=== PATIENT | female | born 1935 | race Caucasian/White ===

== ENCOUNTER 2018-06-14 06:42 | Inpatient (IN) ==
[2018-06-14] MEDS ORDERED: ACETAMINOPHEN 1,000 MG/100 ML VIAL IV PRN (10:33)
[2018-06-14] MEDS ORDERED: ONDANSETRON INJ 2 MG/ML 2 ML VIAL IV PRN (10:33)
[2018-06-14] MEDS ORDERED: HydrALAZINE HCL 20 MG/ML VIAL IV PRN (10:37)
[2018-06-14] MEDS: SODIUM CHLORIDE 0.9% 1000ML 1,000 ML IV SCH ×2 (10:55→21:38)
--- NOTE | 2018-06-14 11:09 | History & Physical Report ---
Date of Service June 14, 2018 Assessment & Plan (1) Pancreatitis: Patient kept n.p.o. hydration with normal saline pain control parenteral opiates and parenteral Tylenol, MRCP suggest acute cholecystitis with possible IPMN's in the pancreas itself no choledocholithiasis is seen antibiotics will be begun both Cipro and Flagyl and a general surgical consult be undertaken (2) HTN (hypertension): Patient be continued on her metoprolol with a small sip of water with a dose 5/1 (3) Anemia: Her anemia certainly could be acute blood loss anemia associate with her previous surgery however we will check iron and vitamin indices in the morning as well as trend her anemia throughout her stay (4) Epigastric pain: Patient has mild epigastric pain to be placed on intravenous Pepcid therapy (5) DVT prophylaxis: DVT prevention will be SCDs in case she needs an interventional procedure History of Present Illness Primary Care Provider: Janine Tirado MD 83-year-old female transferred from [facility] where she presented with nausea vomiting and abdominal pain. Upon evaluation at their facility she is found to have pancreatitis with a lipase of over 15,000, elevation of liver transaminases, alkaline phosphatase, and mild elevation of bilirubin. She is not septic as a lactic acid was 1.2 her general the labs included some anemia otherwise were unremarkable. Patient was transferred to our facility for gastrointestinal specialty expertise Patient was comfortable in the room only having minor abdominal pain worsened with examination Allergies Allergy/AdvReac Type Severity Reaction Status Date / Time No Known Allergies Allergy Unverified 06/14/18 11:13 Home Medications Home Medications Medication Instructions Recorded Confirmed Type Calcium 600 600 mg PO BID 06/14/18 06/14/18 History acetaminophen 500 mg PO BID PRN 06/14/18 06/14/18 History aspirin [Aspirin Low Dose] 81 mg PO DAILY 06/14/18 06/14/18 History metoprolol tartrate 25 mg PO DAILY 06/14/18 06/14/18 History multivitamin 1 tab PO DAILY 06/14/18 06/14/18 History ranitidine HCl [Zantac] 150 mg PO DAILY PRN 06/14/18 06/14/18 History simvastatin 40 mg PO HS 06/14/18 06/14/18 History Past Med/Surg History Medical History Dyslipidemia HTN (hypertension) Pancreatitis Surgical History H/O hysterectomy with oophorectomy per pt was benign Social History Preferred Language: Mongolian Communication Ability: Effective 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 No double vision blurry vision No problems with speech or swallowing No palpitations, chest pain or pressure No Wheezing or breathing issues Central and left upper quadrant abdominal pain with associated nausea vomiting , she has healing lower abdominal wound No burning urine urine frequency or changes in color No focal joint pain or muscle pain No skin rashes or oral lesions No unusual bruising or bleeding No focused back pain or numbness or loss of strength No changes in memory or confusion Physical Exam Physical Exam: The patient appeared well nourished and normally developed. Vital signs as documented. Head exam is unremarkable. normocephalic, atraumatic Neck is without jugular venous distension, thyromegaly, or lymphademopathy Lungs are clear to auscultation and percussion. Cardiac exam reveals Rhythm is regular. First and second heart sounds normal. Abdominal exam reveals well-healed midline abdominal incision inferior to umbilicus, bruising on her abdomen from home Lovenox injections, hypoactive ruiz wel sounds, mild tenderness in the epigastrium left upper quadrant no rebound or guarding Extremities are nonedematous and both pedal pulses are present Neurologic exam is A&Ox3, no focal deficits, strength is equal bilateral Psychologically seems neither anxious or depressed Skin is warm Dry without jaundice Results & Data Vital Signs (Past 12 Hours) Vital Signs Temp Pulse Resp BP Pulse Ox 06/14/18 10:12 36.8 C 69 16 150/75 H 96
[2018-06-14] MEDS ORDERED: Nursing to Pharmacy Communication ONE (12:40)
[2018-06-14 12:42] LABS: INR 1.1 (0.9-1.1); Prothrombin Time 10.9 Seconds (9.0-12.0)
[2018-06-14] MEDS: FAMOTIDINE 20 MG in SYRINGE 3 ML IV SCH ×2 (12:52→20:44)
[2018-06-14] MEDS: PATIENT'S ALLERGY INFO NEEDS ENTERED SCH ×4 (12:57→13:55)
--- NOTE | 2018-06-14 14:15 | Magnetic Resonance Report ---
MRCP CLINICAL HISTORY: Elevated lipase. COMPARISON STUDY: No priors. TECHNIQUE: Abdominal MRCP is performed utilizing various T2-weighted sequences in the axial and coron al planes. IV contrast was not administered for this examination. 3-D reformats are created and asses sed. The examination is modestly compromised by motion artifact. FINDINGS: There are numerous gallstones. The gallbladder is distended. The gallbladder wall is thickened and th ere is pericholecystic edema and trace fluid. The appearance is consistent with acute cholecystitis. There is mild central intrahepatic biliary ductal dilatation. The common bile duct measures up to 5 m m. There are no filling defects to indicate choledocholithiasis. The pancreatic duct is normal in juan iber. The liver, spleen, and adrenal glands are grossly unremarkable. The pancreas is atrophic. There are a t least 5 tiny cystic lesions measuring up to 6 mm located adjacent to the pancreatic duct. These are typical appearance for small sidebranch IPMNs. The kidneys are atrophic and without hydronephrosis. Numerous parapelvic cysts are seen bilaterally. There is no bowel obstruction. The abdominal aorta is normal in caliber. The bony structures are normal as imaged. No pleural effusion is seen. Midline st ernotomy wires are noted. IMPRESSION: 1. Cholelithiasis with evidence of acute cholecystitis. 2. No choledocholithiasis is seen. 3. 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 Electronically signed by: Ryan Turner M.D. 06/14/2018 2:13 PM
--- NOTE | 2018-06-14 14:38 | Ultrasound Report ---
US liver CLINICAL HISTORY: eval for cbd distension/Stone pain. Nausea. COMPARISON STUDY: MRCP same date FINDINGS: Multiple small gallstones are noted within the gallbladder lumen. Trace amount of perichole cystic edema. Common bile that measures 5 mm. No significant intrahepatic biliary ductal dilatation b y ultrasound criteria. IMPRESSION: 1. Findings suggesting acute cholecystitis. 2. Normal caliber common bile duct at 5 mm. 3. Liver itself is uniform. The above report was generated using voice recognition software. It may contain grammatical, syntax or spelling errors. Electronically signed by: Clovis Rainye M.D. 06/14/2018 2:37 PM
[2018-06-14] MEDS: METOPROLOL SUCC 25MG EXT REL TAB PO SCH (14:47)
--- NOTE | 2018-06-14 19:51 | Surgery Consultation ---
Date of Consultation June 14, 2018 Assessment & Plan (1) Gallstone pancreatitis: Patient is admitted with what appears to be gallstone pancreatitis. She has significantly elevated lipase. We will monitor her liver function study and her lipase. We will also ask the GI doctor follow the patient With her history of cryptitis and elevated liver functions. It may be that we received with laparoscopic Cholecystectomy possible cholangiogram the next 1 to 2 days. We will wait for her pace to normalize. I have discussed this plan with the patient and her . History of Present Illness Attending Physician: Isaias Keenan History of Present Illness Patient is admitted to the hospital via transfer from [facility] with diagnosis of gallstone pancreatitis. Her liver function studies and lipase are significantly elevated. She did undergo MRCP which does not show any defects in the common bile duct. She does have evidence of sludge and stones in her gallbladder with gallbladder wall edema. Currently she has no significant abdominal pain nausea or vomiting. She is much improved from last evening. Recent history includes hysterectomy and bilateral oophorectomy at [facility] in [place]. She apparently had ovarian masses. Allergies Allergy/AdvReac Type Severity Reaction Status Date / Time No Known Allergies Allergy Unverified 06/14/18 11:13 Home Medications Home Medications Medication Instructions Recorded Confirmed Type Calcium 600 600 mg PO BID 06/14/18 06/14/18 History acetaminophen 500 mg PO BID PRN 06/14/18 06/14/18 History aspirin [Aspirin Low Dose] 81 mg PO DAILY 06/14/18 06/14/18 History metoprolol tartrate 25 mg PO DAILY 06/14/18 06/14/18 History multivitamin 1 tab PO DAILY 06/14/18 06/14/18 History ranitidine HCl [Zantac] 150 mg PO DAILY PRN 06/14/18 06/14/18 History simvastatin 40 mg PO HS 06/14/18 06/14/18 History Patient History Medical History Dyslipidemia HTN (hypertension) Pancreatitis Surgical History H/O hysterectomy with oophorectomy per pt was benign Social History Preferred Language: Finnish Communication Ability: Effective 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 Head is atraumatic sclera do not appear to be icteric and is warm without rashes neck is supple she is in no respiratory distress Her heart shows regular rhythm. Her abdomen is soft and essentially nontender. Her extremities are warm and well-perfused Results & Data Vital Signs (Past 12 Hours) Vital Signs Temp Pulse Resp BP Pulse Ox 06/14/18 15:31 36.3 C L 82 17 132/72 95 06/14/18 10:12 36.8 C 69 16 150/75 H 96 I did review her laboratories CP results. Her CT scan images are not available at this time
[2018-06-14 20:01] LABS: Creatinine Clr Calc Pharmacy 43.2 ml/min; Est GFR (African American) 68.5; Est GFR (Non-African American) 59.1
[2018-06-14] MEDS: metroNIDAZOLE 500 MG/100 ML BAG IV SCH (20:34)
[2018-06-14] MEDS: HEPARIN SOD 5,000 UNIT/0.5 ML VIAL SQ SCH (20:44)
[2018-06-14] MEDS: CIPROFLOXACIN 400 MG/200 ML BAG IV SCH (21:39)
[2018-06-15] MEDS: metroNIDAZOLE 500 MG/100 ML BAG IV SCH ×3 (04:56→23:50)
[2018-06-15] MEDS: CIPROFLOXACIN 400 MG/200 ML BAG IV SCH ×2 (07:39→20:16)
[2018-06-15] MEDS: SODIUM CHLORIDE 0.9% 1000ML 1,000 ML IV SCH (07:39)
[2018-06-15 08:35] LABS: Albumin Level 2.7 gm/dl (3.4-5.0); BUN Creatinine Ratio 17.9 (10-20); Calcium 8.1 mg/dl (8.5-10.1); Creatinine Clr Calc Pharmacy 52.7 ml/min; Est GFR (Non-African American) 75.1; Potassium 3.6 mmol/L (3.5-5.1)
[2018-06-15 08:38] LABS: Bilirubin Direct 0.4 mg/dl (0-0.2); Bilirubin,Total 0.7 mg/dl (0.2-1); Total Protein 5.8 gm/dl (6.4-8.2)
[2018-06-15] MEDS: METOPROLOL SUCC 25MG EXT REL TAB PO SCH (09:08)
[2018-06-15] MEDS: FAMOTIDINE 20 MG in SYRINGE 3 ML IV SCH ×2 (09:08→20:21)
[2018-06-15] MEDS: HEPARIN SOD 5,000 UNIT/0.5 ML VIAL SQ SCH ×2 (09:08→20:20)
--- NOTE | 2018-06-15 10:00 | Gastrointestinal Consultation ---
Date of Consultation June 15, 2018 Assessment & Plan (1) Gallstone pancreatitis: 83 year old female with gallstone pancreatitis, who presented w/ elevated LFT and significantly elevated lipase. MRCP negative, this AM pain improving, LFTs and lipase trending down, likely passed a stone - Daily LFTs - NPO - LR 200 mL hr - Antiemetics PRN - Analgesia PRN - Would keep NPO after midnight until we are able to re-evaluate LFTs - No current indication for ERCP - Appreciate general surgery recommendations Thank you for allowing us to participate in the care of this patient. Please call with any acute changes, questions or concerns. Please see addendum below with additional recommendation from my supervising physician. Present on Admission?: Yes Supervising Physician Co-Signing Physician Notes I have performed a history and physical examination of this patient and reviewed the electronic medical record. Specifically, on physical examination there is mild epigastric tenderness. I have discussed the case with ORA Gonzalez. The above note reflects my findings, conclusions, and recommendations. Clovis Haney MD History of Present Illness Reason for Consultation: gallstone panc Requesting Physician: Bryce Attending Physician: Eric Wu DO History of Present Illness 83 year old female who repots abrupt onset of epigastric abdominal pain w/ radiation under both breast and into her back on Tuesday associated w/ mild nausea, no vomiting. Initially pain wax and waned, however, once persisted she sought ED care. [facility] and labs concerning for gallstone panc and transfer was initated. Today, feeling somewhat improved. Abd pain is less severe. No longer constant, only pain with palpation. No nausea, vomiting. Moving bowels. No appetite. No fever, chills, CP, SOB. No new meds No ETOH No prior episodes of pancreatitis Labs received were reviewed. Presented w/ TB 2.2, AST 471, ALK 243, ALKP 282 and lipase > 15,000 MRCP: Cholelithiasis with evidence of acute cholecystitis. No choledocholithiasis is seen. Allergies Allergy/AdvReac Type Severity Reaction Status Date / Time No Known Allergies Allergy Unverified 06/14/18 11:13 Home Medications Home Medications Medication Instructions Recorded Confirmed Type Calcium 600 600 mg PO BID 06/14/18 06/14/18 History acetaminophen 500 mg PO BID PRN 06/14/18 06/14/18 History aspirin [Aspirin Low Dose] 81 mg PO DAILY 06/14/18 06/14/18 History metoprolol tartrate 25 mg PO DAILY 06/14/18 06/14/18 History multivitamin 1 tab PO DAILY 06/14/18 06/14/18 History ranitidine HCl [Zantac] 150 mg PO DAILY PRN 06/14/18 06/14/18 History simvastatin 40 mg PO HS 06/14/18 06/14/18 History Patient History Medical History Dyslipidemia HTN (hypertension) Pancreatitis Surgical History H/O hysterectomy with oophorectomy per pt was benign Social History Preferred Language: Greenlandic Communication Ability: Effective 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 Beliefs That Will Affect Care: None Current Living Situation: Spouse Other Information That Helps Us Care for You: No Feels Safe at Home: Yes Safety Concerns: Feels Safe At This Time Smoking Status: Never smoker Do You Dip or Chew Tobacco: No Second Hand Exposure: No Tobacco Cessation Education Requested by Patient: No Hx Alcohol Use: Yes Alcohol type: wine Hx Substance Use: No Review of Systems Constitutional: no fever, no body aches, no weakness and no weight gain Respiratory: no cough, no dyspnea, no pain on inspiration and no wheezing Cardiovascular: no chest pain, no radiating jaw, neck or arm pain, no dyspnea on exertion and no palpitations Gastrointestinal: + abdominal pain; no belching, no early satiety, no heartburn, no nausea, no vomiting, no coffee ground emesis and no melena Physical Exam Constitutional: WD/WN, vitals as above Respiratory: normal respiratory effort, lungs clear to auscultation Cardiovascular: RRR, no murmur, no edema Gastrointestinal (Abdomen): Inspection/Auscultation: abdomen normal to inspection and normal bowel sounds Percussion/Palpation: + abdomen tender and abdomen soft; no guarding and abdomen not rigid Skin: no rashes, warm and dry Results & Data Vital Signs (Past 12 Hours) Vital Signs Temp Pulse Resp BP Pulse Ox 06/15/18 06:56 36.9 C 82 16 132/70 93 06/14/18 22:56 36.9 C 74 16 121/66 94 Laboratory Results 06/15/18 06/15/18 06/14/18 Range/Units 07:39 07:39 12:24 PT (9.0-12.0) Seconds INR (0.9-1.1) Sodium 141 (136-145) mmol/L Potassium 3.6 (3.5-5.1) mmol/L Chloride 109 H (98-107) mmol/L Carbon Dioxide 24 (21-32) mmol/L Anion Gap 8.0 (3-11) BUN 13 (7-18) mg/dl Creatinine 0.73 0.89 (0.6-1.2) mg/dl Est Cr Clr Drug Dosing 52.7 43.2 ml/min Est GFR ( Amer) 87.0 68.5 Est GFR (Non-Af Amer) 75.1 59.1 BUN/Creatinine Ratio 17.9 (10-20) Glucose 72 (70-99) mg/dl Calcium 8.1 L (8.5-10.1) mg/dl Iron 51 (35-150) mcg/dl TIBC 289 (250-450) mcg/dl Total Bilirubin 0.7 (0.2-1) mg/dl Direct Bilirubin 0.4 H (0-0.2) mg/dl AST 150 H (15-37) U/L ALT 146 H (12-78) U/L Alkaline Phosphatase 216 H (45-117) U/L Total Protein 5.8 L (6.4-8.2) gm/dl Albumin 2.7 L (3.4-5.0) gm/dl Lipase 1156 H (73-393) U/L Vitamin B12 Pending Folate Pending 06/14/18 Range/Units 12:18 PT 10.9 (9.0-12.0) Seconds INR 1.1 (0.9-1.1) Sodium (136-145) mmol/L Potassium (3.5-5.1) mmol/L Chloride (98-107) mmol/L Carbon Dioxide (21-32) mmol/L Anion Gap (3-11) BUN (7-18) mg/dl Creatinine (0.6-1.2) mg/dl Est Cr Clr Drug Dosing ml/min Est GFR ( Amer) Est GFR (Non-Af Amer) BUN/Creatinine Ratio (10-20) Glucose (70-99) mg/dl Calcium (8.5-10.1) mg/dl Iron (35-150) mcg/dl TIBC (250-450) mcg/dl Total Bilirubin (0.2-1) mg/dl Direct Bilirubin (0-0.2) mg/dl AST (15-37) U/L ALT (12-78) U/L Alkaline Phosphatase (45-117) U/L Total Protein (6.4-8.2) gm/dl Albumin (3.4-5.0) gm/dl Lipase (73-393) U/L Vitamin B12 Folate
[2018-06-15] MEDS ORDERED: CONRAY 60% 50 ML VIAL ONE (10:31)
[2018-06-15] MEDS ORDERED: LIDOCAINE/EPINEPHRINE 1% 20 ML VIAL ONE (10:31)
--- NOTE | 2018-06-15 10:36 | Progress Note ---
Date of Service June 15, 2018 Assessment & Plan (1) Gallstone pancreatitis: Lipase has come down to 1100- pt asx discussed laparoscopic cholecystectomy with her and - they wish to proceed Subjective pt awake, alert, no pain Physical Exam Physical Exam: abd soft Results & Data Vital Signs (Past 12 Hours) Vital Signs Temp Pulse Resp BP Pulse Ox 06/15/18 06:56 36.9 C 82 16 132/70 93 06/14/18 22:56 36.9 C 74 16 121/66 94
[2018-06-15] MEDS ORDERED: ROCURONIUM BROMIDE 10 MG/ML 5 ML VIAL ONE (10:37)
[2018-06-15] MEDS ORDERED: fentaNYL citrate 100 MCG/2 ML VIAL ONE ×2 (10:37→12:58)
[2018-06-15] MEDS ORDERED: LIDOCAINE HCL 2% 2 ML VIAL/AMP(20MG/ML) INFIL ONE (10:37)
[2018-06-15] MEDS ORDERED: PROPOFOL IV EMULSION 10 MG/ML 20 ML VIAL IV ONE (10:37)
[2018-06-15] MEDS ORDERED: ONDANSETRON INJ 2 MG/ML 2 ML VIAL ONE (10:37)
[2018-06-15] MEDS: LACTATED RINGER'S 1,000 ML IV SCH ×3 (10:40→21:37)
--- NOTE | 2018-06-15 10:51 | History & Physical Bridge Note ---
Date of Service June 15, 2018 History & Physical Bridge Note I have examined the patient, reviewed the History & Physical and in the interval since the performance of the History & Physical I have noted the following changes of clinical significance: no changes noted pt examined and or explained to pt will proceed with lydia pugh possible open r and c explained consent signed
--- NOTE | 2018-06-15 11:09 | Anesthesiology Consultation ---
Date of Service June 15, 2018 Assessment & Plan Chart Review Chart Review: Acceptable Risk for Surgery and Patient NOT seen in Pre Admission Testing Consults Requested none ASA ASA3 Proposed Anesthesia Anesthesia Type: General Risk / Benefits Reviewed With: PT / POA / Parent / Guardian, Accepts Plan and Informed Consent Obtained History Surgery Operation Date: 06/15/18 10:35 Proposed Procedures p Laparoscopic Cholecystectomy with Cholangiogram - Javi Yung MD Height/Weight Height: 5 ft 3 in Weight: 69.6 kg Allergies Allergy/AdvReac Type Severity Reaction Status Date / Time No Known Allergies Allergy Unverified 06/14/18 11:13 Medications Home Medications Medication Instructions Recorded Confirmed Last Taken Calcium 600 600 mg PO BID 06/14/18 06/14/18 Unknown acetaminophen 500 mg PO BID PRN 06/14/18 06/14/18 Unknown aspirin [Aspirin Low Dose] 81 mg PO DAILY 06/14/18 06/14/18 Unknown metoprolol tartrate 25 mg PO DAILY 06/14/18 06/14/18 Unknown multivitamin 1 tab PO DAILY 06/14/18 06/14/18 Unknown ranitidine HCl [Zantac] 150 mg PO DAILY PRN 06/14/18 06/14/18 Unknown simvastatin 40 mg PO HS 06/14/18 06/14/18 Unknown Active Medications Generic Name Dose Route Start Last Admin Trade Name Freq PRN Reason Stop Dose Admin Heparin Sodium (Porcine) 5,000 units 06/14/18 21:00 06/15/18 09:08 Heparin Sodium (Porcine) SQ 07/14/18 20:59 5,000 units Q12 SARATH Administration Acetaminophen 1,000 mg in 100 mls @ 400 mls/hr 06/14/18 10:33 06/14/18 19:46 Ofirmev IV 07/14/18 10:32 Infused Q8H PRN Infusion Pain or Fever Famotidine 20 mg/ Syringe 5 mls @ 2.5 mls/min 06/14/18 12:15 06/15/18 09:08 IV 07/14/18 08:59 2.5 mls/min BID SARATH Administration Ciprofloxacin 400 mg in 200 mls @ 100 mls/hr 06/14/18 20:00 06/15/18 10:40 Cipro IV 06/24/18 19:59 Infused Q12H SARATH Infusion Metronidazole 500 mg in 100 mls @ 100 mls/hr 06/14/18 20:00 06/15/18 06:07 Flagyl IV 06/24/18 19:59 Infused Q8H SARATH Infusion Lactated Ringer's 1,000 mls @ 175 mls/hr 06/15/18 10:15 06/15/18 10:40 Lr IV 07/15/18 10:14 Not Given .[id number] SARATH Metoprolol Succinate 25 mg 06/14/18 12:15 06/15/18 09:08 Toprol Xl PO 07/14/18 12:14 25 mg QAM SARATH Administration NPO Date Last Intake of Fluids: 06/15/18 Time Last Intake of Fluids: 08:00 Last Intake of Fluids Comment: sip with medications Date Last Intake of Solids: 06/12/18 Time Last Intake of Solids: 18:00 Past Medical History Medical History Dyslipidemia HTN (hypertension) Pancreatitis Exercise / Class Metabolic Activity II 4-5 Yardwork/Stairs/Walk up hill Past Surgical History Surgical History H/O hysterectomy with oophorectomy per pt was benign Past Anesthesia History No Hx of Anesthesia Complications and No Family Hx of Anesthesia Complications History of PONV No Hx of PONV and No Hx of Motion Sickness Social History Smoking Status: Never smoker Do You Dip or Chew Tobacco: No Hx Alcohol Use: Yes Alcohol type: wine alcohol intake frequency: other Alcohol Intake Frequency Comment: 2 times a month Hx Substance Use: No Physical Exam Vital Signs Last Vital Signs Temp 37.2 C 06/15/18 10:49 Pulse 85 06/15/18 10:49 Resp 18 06/15/18 10:49 BP 151/73 H 06/15/18 10:49 Pulse Ox 96 06/15/18 10:49 Constitutional not obese ENMT Mouth: no dentition abnormality Thyromental Distance: > or= 3.5 Finger Breadths Mallampati Class: II Neck normal visual inspection and trachea midline; neck extension not limited Respiratory normal respiratory effort Auscultation: lungs clear to auscultation bilaterally Cardiovascular Rate/Rhythm: regular rate and regular rhythm Heart Sounds: no murmur Vessels: no carotid bruit Musculoskeletal Spine: normal cervical ROM Neurologic moves all extremities Motor/Sensory: no sensory deficit Psychiatric Orientation: alert and oriented x 3 Testing Electrocardiogram Date: 06/15/18 Findings: + NSR @ (at 88) Laboratory Results 06/15/18 07:39 PT 10.9 Seconds (9.0-12.0) 06/14/18 12:18 INR 1.1 (0.9-1.1) 06/14/18 12:18
[2018-06-15] MEDS ORDERED: NEOSTIGMINE METHYLSULFATE 5 MG/5 ML SYR ONE (11:59)
[2018-06-15] MEDS ORDERED: GLYCOPYRROLATE 0.2 MG/ML VIAL ONE (11:59)
[2018-06-15] MEDS ORDERED: cefOXitin 1,000 MG/50 ML BAG IV STA (12:09)
--- NOTE | 2018-06-15 12:30 | Post Operative Brief Note ---
Immediate Post Op Note v1 Date of Surgery June 15, 2018 Pre & Post Diagnosis Operation Date: 06/15/18 10:35 Pre-Op Diagnosis: PANCREATITIS Post-Op Diagnosis: PANCREATITIS Procedure Operation Date: 06/15/18 10:35 Actual Procedures p Laparoscopic Cholecystectomy with Cholangiogram(Not Applicable) - Javi Yung MD Surgeon Javi Yung MD Supervisor Home Energy Consultant 0 Estimated Blood Loss 20 Findings Consistent with Post-Op Diagnosis Drains Carlos Drain
--- NOTE | 2018-06-15 12:39 | Fluoroscopy Report ---
INTRAOPERATIVE CHOLANGIOGRAM HISTORY: Post cholecystectomy. FLUOROSCOPY TIME: 2 seconds. 3 fluoroscopic spot images of the right upper quadrant. FINDINGS: Fluoroscopy was provided for an intraoperative cholangiogram status post cholecystectomy. C ontrast was injected through the cystic duct remnant. The common bile duct is normal in course and ca liber. There are no filling defects seen within the common bile duct to suggest a retained stone. Co ntrast extends into the small bowel. There is no intrahepatic bile duct dilatation. IMPRESSION: Fluoroscopy provided for an intraoperative cholangiogram status post cholecystectomy. No filling defects within the common bile duct. Electronically signed by: Jarrell Lind M.D. 06/15/2018 12:37 PM
[2018-06-15] MEDS ORDERED: PROMETHAZINE HCL 12.5 MG in SODIUM CHLORIDE 0.9% 50 ML IV PRN (12:50)
[2018-06-15] MEDS ORDERED: FLUMAZENIL 0.1 MG/1 ML 10 ML VIAL IV PRN (12:50)
[2018-06-15] MEDS ORDERED: ONDANSETRON INJ 2 MG/ML 2 ML VIAL IV PRN (12:50)
[2018-06-15] MEDS ORDERED: LABETALOL HCL IV 5 MG/ML 20ML IV PRN (12:50)
[2018-06-15] MEDS ORDERED: NALOXONE HCL 0.4 MG/1 ML VIAL/CARP IV PRN (12:50)
[2018-06-15] MEDS ORDERED: ATROPINE SULFATE 0.1 MG/ML 10ML SYR IV PRN (12:50)
[2018-06-15] MEDS ORDERED: ePHEDrine sulfate 50 MG/ML AMP IV PRN (12:50)
[2018-06-15] MEDS: fentaNYL citrate 100 MCG/2 ML VIAL IV PRN ×4 (13:05→13:35)
--- NOTE | 2018-06-15 13:10 | Operative Report ---
Post Operative Report Pre & Post Diagnosis Operation Date: 06/15/18 10:35 Pre-Op Diagnosis: PANCREATITIS Post-Op Diagnosis: PANCREATITIS Procedure Operation Date: 06/15/18 10:35 Actual Procedures p Laparoscopic Cholecystectomy with Cholangiogram(Not Applicable) - Javi Yung MD Surgeon Javi Yung MD Patient was brought into the operating theater supine position general endotracheal anesthesia supplemental IV antibiotics given patient was identified a timeout was had the abdomen was prepped the right scrub and solution properly draped small incision was made supraumbilically varices onto the abdomen CO2 insufflated point of entry inspected under the left fine 5 mm trocar then inserted followed by the camera point of entry again reevaluated free of any injury 5 mm epigastric and 2 subcostal ports with preemptive local analgesic was positioned under direct visualization gallbladder wall was quite thickened retracted cephalad and we started dissecting in the edematous tissue easily dissecting out the cystic duct window was created cystic duct was clipped proximally #5 urethral catheter transverse and the abdominal wall and a 14 Angiocath positions serial x-rays taken free flow into the duodenum no obstruction visualized Cholangiocath was removed cystic duct was securely twice 5 mm clips artery was identified clipped proximally twice once distally right at the edge of the gallbladder usually sharp electrocautery gallbladder was quite edematous as stated the plane of dissection was somewhat easy to identify gallbladder was fairly friable small opening the gallbladder was made some stones fell out which were bilirubinate small caviar type of stones once the gallbladder was freed from the liver placed on Endopouch and taken out intact through the epigastric port subhepatic suprahepatic area was then checked hemostasis appeared satisfactory I elected to drain the subhepatic space with a 19 Carlos drain that was brought in the epigastric area and taken out through the lateral port in the right upper quadrant prior to doing that we placed the camera right upper quadrant port visualize the anterior abdominal wall where the trocar was born and no adhesions were identified individual trochars were then removed under direct visualization last the umbilical trocar wounds were closed with 4-0 Monocryl Steri-Strips applied the Carlos drain was sutured to skin edge with 2-0 silk suture procedure was tolerated well by the patient estimated blood loss approximately 10 cc 20 cc thank you Turning Lathe Tender 0 Estimated Blood Loss 20 Findings Consistent with Post-Op Diagnosis Specimens gallbladder and stones Description of Procedure merda I attest to the content of the Intraoperative Record and any orders documented therein. Any exceptions are noted below.
--- NOTE | 2018-06-15 13:57 | Anesthesiology Progress Note ---
Date of Service June 15, 2018 Anesthesia Post Procedure Vital Signs Vital Signs: Temp Pulse Pulse Resp BP BP Pulse Ox 06/15/18 13:50 37.2 C 75 15 147/66 H 100 06/15/18 13:40 37.2 C 83 17 139/62 100 06/15/18 13:30 76 16 147/71 H 100 06/15/18 13:20 78 18 153/64 H 100 06/15/18 13:10 79 18 153/71 H 100 06/15/18 13:00 74 18 145/69 H 100 06/15/18 12:50 79 19 159/66 H 100 06/15/18 12:41 38.2 C H 78 23 162/70 H 100 06/15/18 10:49 37.2 C 85 18 151/73 H 96 06/15/18 06:56 36.9 C 82 16 132/70 93 06/14/18 22:56 36.9 C 74 16 121/66 94 06/14/18 15:31 36.3 C L 82 17 132/72 95 Pain Intensity Abdomen: Pain Intensity: 4 Transfer of Care Handoff Completed per policy Notes Mental Status: alert / awake / arousable Patient Amnestic to Procedure: Yes Nausea / Vomiting: adequately controlled Pain: adequately controlled Airway Patency, RR, SpO2: stable & adequate BP & HR: stable & adequate Hydration State: stable & adequate Anesthetic Complications: no major complications apparent
[2018-06-15] MEDS ORDERED: ACETAMINOPHEN 500 MG TAB PO PRN (14:15)
[2018-06-15 14:50] LABS: Folate (Folic Acid) > 24.00 ng/ml (>5.38); Vitamin B12 282 pg/ml (211-911)
--- NOTE | 2018-06-15 15:06 | Hospitalist Progress Note ---
Date of Service June 15, 2018 Assessment & Plan (1) Gallstone pancreatitis: - Initial Lipase > 21306 and currently at 1100; largely asymptomatic at this point - MRCP with acute cholecystitis and cholelithiasis but no evidence of choledocholithiasis - possible recently passed stone? - Pain control with Tylenol and Morphine PRN; anti-emetics - Ciprofloxacin 400 mg IV BID and Flagyl 500 mg IV Q8H; LR 175 mL/hr - Daily labs to assess lipase/LFTs - GI and Gen Surg consulted - appreciate input Present on Admission?: Yes (2) CAD (coronary atherosclerotic disease): - H/O CABG; stable cardiovascularly - denies ACS or limitations with exertion due to CP/SOB - ASA 81 mg daily, Toprol XL 25 mg daily, Simvastatin 40 mg daily Present on Admission?: Yes (3) Anemia: - Possibly related to acute blood loss anemia from recent DENNIS/BSO - Iron and vitamin indices are WNL however lower end of normal - Continue to trend daily Present on Admission?: Yes (4) DVT prophylaxis: - SCDs; Heparin BID Disposition: Await surgical recovery Subjective Pt evaluated prior to cholecystectomy. Reports that her pain is much better and beginning to feel better. Some slight discomfort in the abdomen but is manageable. Had recent DENNIS/BSO. Currently no nausea or vomiting. Lipase now to 1100. Verbalizes no other complaints at this time. Denies CP or SOB. H/O CABG but stable cardiovascularly. No limitations of activity due to CP/SOB. Optimal for surgical intervention Review of Systems Constitutional: no fever and no chills Eyes: no worsening vision Ear, Nose, Mouth, Throat: no sore throat and no dysphagia Respiratory: no cough and no dyspnea Cardiovascular: no chest pain, no palpitations and no edema Gastrointestinal: + abdominal pain; no nausea, no vomiting, no constipation and no diarrhea/loose stools Genitourinary: no dysuria Musculoskeletal: no body aches Integumentary: no rash Neurologic: no dizziness Physical Exam Constitutional: well developed and well nourished; no acute distress and not ill appearing Eyes: + anicteric sclerae ENMT: Throat: uvula midline Neck: normal visual inspection and trachea midline Respiratory: normal respiratory effort, lungs clear to auscultation Cardiovascular: RRR, no murmur, no edema Gastrointestinal (Abdomen): Inspection/Auscultation: normal bowel sounds Percussion/Palpation: abdomen soft Musculoskeletal: Head/Neck/Chest: normocephalic, head atraumatic and neck supple Skin: no rashes, warm and dry Neurologic: moves all extremities Psychiatric: A+Ox3, euthymic affect Results & Data Vital Signs (Past 12 Hours) Vital Signs Temp Pulse Pulse Resp BP BP Pulse Ox 06/15/18 14:45 37.0 C 80 16 146/76 H 98 06/15/18 14:10 37.4 C 87 18 161/74 H 95 06/15/18 13:50 37.2 C 75 15 147/66 H 100 06/15/18 13:40 37.2 C 83 17 139/62 100 06/15/18 13:30 76 16 147/71 H 100 06/15/18 13:20 78 18 153/64 H 100 06/15/18 13:10 79 18 153/71 H 100 06/15/18 13:00 74 18 145/69 H 100 06/15/18 12:50 79 19 159/66 H 100 06/15/18 12:41 38.2 C H 78 23 162/70 H 100 06/15/18 10:49 37.2 C 85 18 151/73 H 96 06/15/18 06:56 36.9 C 82 16 132/70 93
[2018-06-15] MEDS: MoRPHine SULFATE 2 MG/ML CARP IV PRN ×2 (16:17→21:46)
[2018-06-15] MEDS: CALCIUM CARBONATE 1250MG TAB PO SCH (20:21)
[2018-06-15] MEDS ORDERED: SIMVASTATIN 40 MG TAB PO SCH (21:00)
[2018-06-16] MEDS: LACTATED RINGER'S 1,000 ML IV SCH (03:35)
[2018-06-16] MEDS: metroNIDAZOLE 500 MG/100 ML BAG IV SCH (06:05)
--- NOTE | 2018-06-16 06:12 | Surgery Progress Note ---
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
[2018-06-16 07:05] LABS: Hematocrit (blood only) 29.1 % (37-47); Hemoglobin 9.2 g/dL (12.0-16.0); Mean Corpuscular Hgb Conc 31.6 g/dL (32-36); Mean Corpuscular Volume 79.7 fL (80-100); Mean Platelet Volume 10.4 fL (7.4-10.4); Platelet Count 217 K/uL (130-400); RDW Coefficient of Variation 14.9 % (11.5-14.5); RDW Standard Deviation 43.6 fL (36.4-46.3); Red Blood Count 3.65 M/uL (4.2-5.4); White Blood Count 7.92 K/uL (4.8-10.8)
[2018-06-16] MEDS: CIPROFLOXACIN 400 MG/200 ML BAG IV SCH (07:39)
[2018-06-16] MEDS: MoRPHine SULFATE 2 MG/ML CARP IV PRN (07:39)
[2018-06-16 07:40] LABS: Albumin Level 2.6 gm/dl (3.4-5.0); BUN Creatinine Ratio 9.6 (10-20); Bilirubin Direct 0.3 mg/dl (0-0.2); Bilirubin,Total 0.6 mg/dl (0.2-1); Calcium 8.2 mg/dl (8.5-10.1); Creatinine Clr Calc Pharmacy 46.9 ml/min; Est GFR (African American) 75.6; Est GFR (Non-African American) 65.3; Potassium 3.3 mmol/L (3.5-5.1); Total Protein 5.8 gm/dl (6.4-8.2)
[2018-06-16] MEDS: CALCIUM CARBONATE 1250MG TAB PO SCH (08:49)
[2018-06-16] MEDS: METOPROLOL SUCC 25MG EXT REL TAB PO SCH (08:50)
[2018-06-16] MEDS: HEPARIN SOD 5,000 UNIT/0.5 ML VIAL SQ SCH (08:51)
[2018-06-16] MEDS ORDERED: MULTIVITAMIN TAB PO SCH (09:00)
[2018-06-16] MEDS ORDERED: ASPIRIN 81 MG ECTAB PO SCH (09:00)
[2018-06-16] MEDS ORDERED: ACETAMINOPHEN W/CODEINE #3 1 TAB PO PRN (10:48)
[2018-06-16] MEDS ORDERED: metroNIDAZOLE 500 MG TAB PO SCH (14:00)
[2018-06-16] MEDS: FAMOTIDINE 20 MG in SYRINGE 3 ML IV SCH (14:14)
--- NOTE | 2018-06-16 15:58 | Discharge Summary ---
Date of Service June 16, 2018 Admission HPI Per Admitting Provider 83-year-old female transferred from [facility] where she presented with nausea vomiting and abdominal pain. Upon evaluation at their facility she is found to have pancreatitis with a lipase of over 15,000, elevation of liver transaminases, alkaline phosphatase, and mild elevation of bilirubin. She is not septic as a lactic acid was 1.2 her general the labs included some anemia otherwise were unremarkable. Patient was transferred to our facility for gastrointestinal specialty expertise Patient was comfortable in the room only having minor abdominal pain worsened with examination Principal Diagnosis Gallstone Pancreatitis with Acute Cholecystitis S/P Lap Valeria Discharge Exam Constitutional well developed and well nourished; no acute distress and not ill appearing Eyes + anicteric sclerae ENMT Throat: uvula midline Neck normal visual inspection and trachea midline Respiratory normal respiratory effort, lungs clear to auscultation Cardiovascular RRR, no murmur, no edema Gastrointestinal (Abdomen) Inspection/Auscultation: normal bowel sounds Percussion/Palpation: abdomen soft; abdomen nontender initial MARELY drain present now removed; incisions well-approximated without drainage or erythema Musculoskeletal Head/Neck/Chest: normocephalic, head atraumatic and neck supple Skin no rashes, warm and dry Neurologic moves all extremities Psychiatric A+Ox3, euthymic affect Discharge Data Allergies Allergy/AdvReac Type Severity Reaction Status Date / Time No Known Allergies Allergy Unverified 06/14/18 11:13 Consultations 06/14/18 10:34 Consult Case Management - Discharge Planning Routine 06/14/18 19:07 Consult General Surgery Routine 06/15/18 08:31 Consult Gastroenterology Routine Procedures Performed Operation Date: 06/15/18 10:35 Actual Procedures p Laparoscopic Cholecystectomy with Cholangiogram(Not Applicable) - Javi Yung MD Ordered Studies 06/14/18 10:37 MR MRCP Routine 06/14/18 10:56 US liver Routine 06/15/18 11:04 [place] cholangiogram OR Routine Hospital Course (1) Gallstone pancreatitis: - Initial Lipase > 81702 and now resolved; and asymptomatic from pancreatitis - tolerated diet - MRCP with acute cholecystitis and cholelithiasis but no evidence of choledocholithiasis - possible recently passed stone? - S/P Lab Valeria on 06/17 and cholangiogram without evidence of filling defects - Rx for pain control and short course Ciprofloxacin; Plan to F/U with surgeon x 1 week (Dr. Yung) (2) CAD (coronary atherosclerotic disease): - H/O CABG; stable cardiovascularly - denies ACS or limitations with exertion due to CP/SOB - ASA 81 mg daily, Toprol XL 25 mg daily, Simvastatin 40 mg daily (3) Anemia: - Possibly related to acute blood loss anemia from recent DENNIS/BSO - Iron and vitamin indices are WNL however lower end of normal (4) DVT prophylaxis: - Instructed to resume prescribed Lovenox (prescribed by Gyne after surgery) starting / Total Time Total Time Spent Total Time Spent (In Minutes): Greater than 30 minutes Discharge Plan Discharge Items Patient Disposition: Home - Home Health Services Reason For Visit: PANCREATITIS Discharge Diagnosis: Gallstone Pancreatitis with a Gallbladder Removal Discharge Goals: Decrease discomfort Activity: Per 'Additional Instructions' section Lifting: No more than 10 pounds Bathing Comment: ok to shower Non-emergency contact: Surgeon Call non-emergency contact if: you have any medication questions, your pain is not controlled, you have a fever, your temperature is above 101.5 and your wound has increased redness Follow-up/Referrals: Javi Yung MD [Surgeon] - (Call to schedule an appt in 1 week) Janine Tirado MD [Primary Care Provider] - Diet: Regular and Low Fat Addtl Provider Instructions: Gallstone Pancreatitis: - Your were admitted due to pancreatitis (inflammation of the pancreas). This was likely caused by gallstones from the gallbladder. There is a good chance you passed a stone that irritated the pancreas. - Thankfully your pancreas enzymes (lipase) are back to normal. You also had your gallbladder removed. - Recommend to eat a low fat diet as you can get some diarrhea now that you do not have a gallbladder. For the next couple weeks would recommend a low fat diet and then gradually can incorporate into your diet. - You will have a prescription for pain medication and some nausea medicine if needed. - It will be important to walk and keep your bowels regular. You may use a stool softener (Colace/Docusate Sodium) if needed or can use laxatives like Miralax if needed. - If you pain increases, you can't move your bowels, you start vomiting, or spiking fevers. PLEASE SEE A DOCTOR. - The surgeons would like to follow-up with you in one week in their office on [address]. - You may resume your blood thinner injection tomorrow 06/17. Home Medications: - Continue your home medications as previously prescribed. We did not make adjustments to these Prescriptions: New ciprofloxacin HCl [Cipro] 500 mg tablet 500 mg PO BID Qty: 10 RF: 0 acetaminophen-codeine [Tylenol-Codeine #3] 300-30 mg tablet 1 - 2 tab PO Q6H Qty: 14 RF: 0 ondansetron 4 mg tablet,disintegrating 4 mg PO Q6H PRN (Reason: nausea and vomiting) 3 Days Qty: 12 RF: 0 Continued metoprolol tartrate 25 mg tablet 25 mg PO DAILY RF: 0 simvastatin 40 mg tablet 40 mg PO HS RF: 0 aspirin [Aspirin Low Dose] 81 mg Tablet,Delayed Release (Dr/Ec) 81 mg PO DAILY RF: 0 Calcium 600 600 mg 600 mg PO BID RF: 0 multivitamin Tablet 1 tab PO DAILY RF: 0 ranitidine HCl [Zantac] 150 mg Tablet 150 mg PO DAILY PRN (Reason: Indigestion) RF: 0 Discontinued acetaminophen 500 mg Tablet 500 mg PO BID PRN (Reason: Pain) RF: 0 Stand-Alone Forms: [employer] [facility] [employer], [facility] [place]/Other Patient Handouts: ED Diet Low Fat Discharge Orders: Discharge Order (Routine); Ordered 06/16/18 Ordered By: Fatou Lee Admission Data Admit Date/Time: 06/14/18 10:11 Attending Provider: Eric Wu Admit Provider: Bala Lovelace Primary Care Provider: Janine Tirado Other Providers: Sekou Kyle ; Elis Wu ; Cristine Cohen ; Mera Norton ; Saturnino Tucker ; Jak Bell ; Margaret Ramirez ; Savanah Morales ; Clovis Haney ; Marlon Crandall ; Gladys Knight ; Elizabeth Subramanian ; Jeannette Simpson ; Gela Birmingham ; Charlie Fletcher Service: Surgical Services Other Interventions: Discharge Summary Assessment (RN) Last Done: 06/16/18 15:01 Pending Studies at Discharge: No DC Date/Time DO NOT enter until pt leaves facility: 06/16/18 15:53 Supervising Physician Co-Signing Physician Notes Attending note: patient seen and examined with Fatou Lee PA-C. I agree with her discharge summary. Patient feeling quite well on day of discharge, minimal pain, eating regular diet. Discussed possible loose stools after gall bladder removed. Reviewed labs, reviewed vitals, reviewed general surgery recommendations. -Acute gallstone pancreatitis: resolved, Lipase normal, no pain, tolerating diet - Cholelithiasis: s/p cholecystectomy, tolerated well, pain controlled d/c to home, follow up with general surgery
[2018-06-16] MEDS ORDERED: CIPROFLOXACIN 500 MG TAB PO SCH (21:00)
== END 2018-06-16 15:53 | disposition home health service (06) | DRG 417 ==
LOC: 3W 10:11 → MERGE 10:11 → SUATTDRO 10:11
DX: Z79.899 Other long term (current) drug therapy; K80.00 Calculus of gallbladder with acute cholecystitis without obstruction; D62 Acute posthemorrhagic anemia; K85.10 Biliary acute pancreatitis without necrosis or infection; Z79.82 Long term (current) use of aspirin; I25.10 Atherosclerotic heart disease of native coronary artery without angina pectoris; I10 Essential (primary) hypertension